=== PATIENT | male | born 1980 | race Caucasian/White ===

== ENCOUNTER 2020-08-25 19:09 | Emergency (ER) | payer OTHER, SELFPAY ==
[2020-08-25 19:12] VITALS: BP 130/72; PULSE 77; RESP 20; TEMP 37.2; O2SAT 96
[2020-08-25 19:42] LABS: Bilirubin Urine UA NEGATIVE (NEGATIVE); Color Urine UA YELLOW; Glucose Urine UA NEGATIVE (Negative); Ketones Urine UA NEGATIVE (NEGATIVE); Leukocyte Esterase Urine UA 2+ (NEGATIVE); Nitrite Urine UA NEGATIVE (Negative); Occult Blood Urine UA TRACE-INTACT (Negative); Protein Urine UA NEGATIVE (Negative); Urobilinogen Urine UA 0.2 E.U./dL (0.2); pH Urine UA 6.5 (4.5-8.0)
[2020-08-25 20:01] LABS: Appearance Urine UA Slightly Cloudy; RBC Urine 0-1/HPF (0-5/HPF); Squamous Epithelial Cell Urine 0-1 /HPF (0-5/HPF); WBC Urine 10-30/HPF (0-5/HPF)
[2020-08-25 20:02] LABS: Amorphous Sediment Urine 1+; Bacteria Urine Moderate (10-30); Culture Indicated Urine Specimen Cultured
--- NOTE | 2020-08-25 21:52 | ED_ITS ---
HPI - Male Genitourinary General Chief complaint: Urogenital-Male Stated complaint: PAIN URINATING FEVER Time Seen by Provider: 08/25/20 20:41 Source: patient Mode of arrival: Ambulatory Limitations: no limitations History of Present Illness HPI Narrative: 40-year-old male comes emergency department complaint of dysuria as well as penile discharge. Patient states he has had a bladder infection in the past. Patient has felt fevers, he has had muscle aches and chills. He denies any other abdominal pain. He has had some bilateral back pain but states he has some chronic back pain. He denies any nausea or vomiting. He denies any issues with bowel movements. He states he has had some frequency, dysuria but no hesitancy or sense of urgency. He denies any other medical issues. He has had UTI in the past which he was treated with antibiotics but is unaware if he recived IM antibiotics or how it was treated or final diagnosis. Patient denies any testicular pain. He states he has a single partner in a monogamous relationship. Related Data Previous Rx's Medication Instructions Recorded doxycycline hyclate 100 mg PO BID #28 tab 08/25/20 Allergies Allergy/AdvReac Type Severity Reaction Status Date / Time No Known Drug Allergies Allergy Verified 08/25/20 19:15 Review of Systems Review of Systems ROS Unobtainable: All systems reviewed & are unremarkable except as noted in HPI and below Exam Narrative Exam Narrative: GENERAL: Alert and oriented x three, thin, well-appearing male in mild distress. HEENT: Head normocephalic, atraumatic, EOMI, pupils reactive, face symmetric, moist mucous membranes NECK: Supple, full range of motion CARDIOVASCULAR: Regular rate and rhythm without murmurs, rubs or gallops. RESPIRATORY: Breath sounds equal bilaterally, no wheezes rales or rhonchi. ABDOMEN: Soft, nontender. Normoactive bowel sounds all 4 quadrants. No guarding or rebound, rigidity, no mass : No CVA tenderness. Male: normal external examination except for a small amount of clearish discharge, no lesions are appreciated, no penile discharge or lesions, testicles non-tender, cremasteric reflex intact, no inguinal hernias noted. EXTREMITIES: Normal range of motion, no clubbing or edema. Neurovascularly intact NEUROLOGICAL: Cranial nerves II through XII grossly intact. Moving all extremities. Normal gait. SKIN: Warm, dry, no petechiae, no rashes or lesions. Initial Vital Signs Initial Vital Signs: Vital Signs Temperature 99.0 F 08/25/20 19:12 Pulse Rate 77 08/25/20 19:12 Respiratory Rate 20 08/25/20 19:12 Blood Pressure 130/72 08/25/20 19:12 Pulse Oximetry 96 08/25/20 19:12 Course Orders Ordered: ED Orders 08/25/20 19:30 Chlamydia Gonorrhea PCR -URINE Stat Urinalysis and Microscopic Stat Urine Culture Stat 08/25/20 23:07 Chlamydia/Gonoc/Myco Genital Stat Discontinued Medications Ceftriaxone Sodium (Ceftriaxone 1,000 Mg Vial) 500 mg IM NOW ONE Stop: 08/25/20 23:10 Last Admin: 08/25/20 23:19 Dose: 500 mg Documented by: ALESSANDRO Doxycycline Hyclate (Doxycycline Hyclate 100 Mg Tablet) 100 mg PO NOW ONE Stop: 08/25/20 23:10 Last Admin: 08/25/20 23:20 Dose: 100 mg Documented by: ALESSANDRO Lidocaine HCl (Lidocaine 1% 20 Ml) 2.1 ml INJ NOW ONE Stop: 08/25/20 23:10 Vital Signs Vital signs: Vital Signs - 8 hr 08/25/20 19:12 08/25/20 21:54 08/25/20 23:14 Temperature 99.0 F Pulse Rate 77 71 Respiratory Rate 20 20 Blood Pressure 130/72 120/72 Pulse Oximetry 96 96 08/25/20 23:29 Temperature Pulse Rate 78 Respiratory Rate 16 Blood Pressure 142/74 H Pulse Oximetry 98 MDM - Male Genitourinary Lab Data Attestation: I reviewed the patient's lab results. Labs: Lab Results 08/25/20 08/25/20 Range/Units 19:30 19:30 Urine Color Yellow Urine Appearance Slightly cloudy Urine pH 6.5 (4.5-8.0) Ur Specific [place] 1.010 (1.000-1.035) Urine Protein Negative (Negative) Urine Glucose (UA) Negative (Negative) g/dL Urine Ketones Negative (NEGATIVE) Urine Occult Blood Trace-intact (Negative) Urine Nitrate Negative (Negative) Urine Bilirubin Negative (NEGATIVE) Urine Urobilinogen 0.2 (0.2) E.U./dL Ur Leukocyte Esterase 2+ H (NEGATIVE) Urine RBC 0-1/hpf (0-5/HPF) Urine WBC 10-30/hpf H (0-5/HPF) Ur Squamous Epith Cells 0-1 /hpf (0-5/HPF) Amorphous Sediment 1+ Urine Bacteria Moderate (10-30) H (None) Ur Culture Indicated? Specimen cultured Ur Chlamydia DNA (PCR) Not detected N gonorrhoeae DNA (PCR) Not detected MDM Narrative Medical decision making narrative: Patient's urinalysis has leukocytes. He has discharge which is atypical for a UTI. Urine GC is negative but was not his 1st urine of the day so a genital swab was sent. Patient was treated with Rocephin as well as doxycycline and prescription was given for doxycycline. Patient is aware that testing is still pending. Discharge Plan Departure Patient Disposition: Home Clinical Impression: Dysuria Instructions: DI for Dysuria -- Adult Activity Restrictions/Additional Instructions: You do have lab/swab is currently pending today. Take antibiotics until completely gone. Return to the ER for persistent fevers, worsening back, flank pain, abdominal pain, persistent vomiting, inability urinate or new or concerning symptoms. Prescriptions: New doxycycline hyclate 100 mg tablet 100 mg PO BID Qty: 28 RF: 0
[2020-08-25 21:54] VITALS: BP 120/72; PULSE 71; O2SAT 96
[2020-08-25 22:15] LABS: Urine N gonorrhoeae NOT DETECTED
[2020-08-25 22:17] LABS: Urine Chlamydia NOT DETECTED
[2020-08-25 23:14] VITALS: RESP 20
[2020-08-25] MEDS: cefTRIAXone 1,000 MG VIAL 500 MG IM (23:19)
[2020-08-25] MEDS: DOXYCYCLINE HYCLATE 100 MG TABLET PO (23:20)
[2020-08-25] MEDS: LIDOCAINE 1% (PF) 2 ML (23:20)
[2020-08-25 23:29] VITALS: BP 142/74; PULSE 78; RESP 16; O2SAT 98
[2020-08-30 14:26] LABS: Chlamydia trachomatis Negative (Negative); Mycoplasma genitalium Negative (Negative); Neisseria gonorrhoeae Negative (Negative)
== END 2020-08-25 23:31 | disposition home or self-care (01) ==
PROVIDERS: Emergency Provider Emergency Medicine
DX: R30.0 Dysuria (principal); R50.9 Fever, unspecified
CPT/HCPCS: 81001; 87077; 87086; 87186; 87491; 87563; 87591; 96372; 99281; 99283; J0696

== ENCOUNTER 2024-05-31 07:13 | Day surgery (SDC) | payer OTHER, SELFPAY ==
--- NOTE | 2024-05-31 | PATH_ITS ---
[facility] Accession Number: [id number] No. of containers..01 Tissue . 01 Material submitted: . colon - ASCENDING COLON POLYP . 01 Diagnosis: ASCENDING COLON POLYP: Sessile serrated adenoma. [facility] 06/02/2024 1503 Local . 01 Electronically signed: . Sridhar Best MD, Pathologist NPI- [id number] . 01 Gross description: . Received in formalin with two patient identifiers and ascending colon polyp, consists of two christie-white flattened irregular soft tissues measuring 0.6 and 0.8 cm in greatest dimension, which are entirely submitted in cassette A1. ([id number]) /MRV 06/02/2024 1503 Local . 01 Pathologist provided ICD-10: D12.2 . 01 CPT . 749940 Specimen Comment: A courtesy copy of this report has been sent to [phone] Performed at: [address] [facility] [address], [place], [place] [id number] MD Sridhar Best MD Phone: [phone]
[2024-05-31 07:30] VITALS: BP 128/74; PULSE 55; RESP 16; TEMP 36.3; O2SAT 99
--- NOTE | 2024-05-31 08:02 | PM.HP.1 ---
History of Present Illness History of Present Illness Date Patient Seen: 05/31/24 Time Patient Seen: 08:02 Chief complaint: Dx Colonoscopy w/poss bx Narrative: 44-year-old male who reports an episode of rectal bleeding 6 months ago. I reviewed the note by Morgan Estrada. No changes. [facility] Social History Smoking Status: Never smoker alcohol intake: current Meds Home Medications and Allergies Allergies Allergy/AdvReac Type Severity Reaction Status Date / Time No Known Drug Allergies Allergy Verified 05/31/24 07:16 Review of Systems Review of Systems ROS: Yes All systems reviewed with the patient and are negative except as otherwise documented Exam Vital Signs (past 8 hours): - 05/31/24 07:30 Temperature 97.3 F L Pulse Rate 55 L Respiratory Rate 16 Blood Pressure 128/74 Pulse Oximetry 99 Oxygen Delivery Method Room Air Oxygen Delivery Method Room Air Const General: cooperative HENMT Head: normal to inspection Eyes General: appearance normal, both eyes and all related structures Neck Neck: normal visual inspection Chest Chest: normal inspection of the chest Resp Effort & Inspection: normal respiratory effort Cardio Rate: regular rate GI Inspection: normal to inspection Skin General: no rashes or lesions noted Neuro General: patient alert and patient awake Extrem General: normal to inspection and no pedal edema Psych Appearance: grossly normal Assessment & Plan Assessment & Plan narrative: 44-year-old male with an episode of rectal bleeding. Colonoscopy is pursued today. Time-Based Coding :: [TOTAL MINUTES] spent with patient and on the chart (including review of chart, obtaining history, exam, reviewing outside data, placing orders, documenting exam and treatment plan, and counseling patient) on [DATE].
--- NOTE | 2024-05-31 08:03 | PM.PREOP ---
Pre-operative Note Interval Note History & Physical reviewed/Exam performed by Physician: Yes Changes to H&P: No ASA Class (for procedural sedation): I
--- NOTE | 2024-05-31 09:06 | PM.OP.COLON ---
Operative Date/Time/Diagnoses Date of procedure: 05/31/24 Time of procedure: 09:06 Pre-op diagnosis: Remote rectal bleeding Post-op diagnosis: same Procedure & Clinicians Study performed: Colonoscopy with hot snare polypectomy Same procedure as scheduled: Yes Indications: Remote rectal bleeding Surgeon: Juan Tello Procedure Notes SCOAP/Timeout: Done Procedure in detail: After the risks and benefits were explained, written and verbal informed consent was obtained. The patient was brought into the procedure room and placed into the left lateral decubitus position. Please see anesthesia note for sedation details. Digital rectal examination was accomplished. The scope was introduced into the patient and advanced under direct visualization to the cecum as identified by the appendiceal orifice and ileocecal valve. The scope was slowly withdrawn to carefully examine the mucosa for any defects or lesions. Comprehensive imaging was accomplished throughout the rectum including the dentate line. The colon was decompressed, the scope was then removed from the patient who tolerated the procedure well. Adult colonoscope Bowel prep adequate Scope withdrawal time: 16 minutes Sedation minutes: 24 Complications: none Impression: There was some scattered erythema in the mid rectum circumferentially that suggested prep artifact. No bleeding lesions no ulceration. No sign of inflammation throughout the rectum and colon. Minimal internal hemorrhoids were appreciated grade 1 at most. No stigmata of recent bleeding. The terminal ileum was interrogated and appeared visually normal. In the ascending colon there was an approximately 7 mm sessile polyp that was initially attempted to be removed with hot snare. The snare came through cold. There were 2 foci of what I could not distinguish residual polyp versus artifact from the snare at the periphery of the polypectomy site. These were cauterized with the tip of the snare. Even though the snare came through cold, there was no sustained bleeding identified. Endoscopic diagnosis 1. Colon polyp 2. Otherwise visually unremarkable colonoscopy. Post-procedure Plan for aftercare: 1. Await histology. 2. Surveillance colonoscopy timing will be contingent on pathology results. Disposition: PACU
[2024-05-31 09:10] VITALS: BP 97/62; PULSE 54; RESP 12; TEMP 36.2; O2SAT 99
[2024-05-31 09:15] VITALS: BP 111/64; PULSE 66; RESP 11; O2SAT 99
[2024-05-31 09:19] VITALS: BP 116/78; PULSE 59; RESP 14; TEMP 36.6; O2SAT 100
== END 2024-05-31 09:34 | disposition home or self-care (01) ==
PROVIDERS: Referring Provider Internal Medicine Gastroenterology; Visit Provider Internal Medicine Gastroenterology
PROC: 0DJD8ZZ Inspection of Lower Intestinal Tract, Via Natural or Artificial Opening Endoscopic (ICD-10-PCS; CPT 45378; principal; 2024-05-31 08:30)
DX: K62.5 Hemorrhage of anus and rectum (principal); D12.2 Benign neoplasm of ascending colon
CPT/HCPCS: 45385; 36415; J2704

== ENCOUNTER → 2025-05-29 13:59 | Outpatient (CLI) | payer OTHER, SELFPAY ==
--- NOTE | 2025-05-29 14:00 | DI.MRI.S_ITS ---
PROCEDURE: MR HIP RT WO CON INDICATIONS: low back pain; right hip pain TECHNIQUE: Noncontrast coronal T1 spin echo and STIR through the bony pelvis. Coronal and axial T2 fast spin echo with fat saturation, sagittal T1 spin echo, and oblique axial T2 fast spin echo with fat saturation through the hip. COMPARISON: None. FINDINGS: Image quality: Excellent. Bones and joints: Prominence of superior anterior right femoral head neck junction with subcortical cystic area is noted which can be seen associated with CAM type femoral acetabular impingement. No marrow edema. No intraosseous lesions or fractures. No avascular necrosis of the femoral heads. The visualized lower lumbar spine appears normally aligned. Tendons and ligaments: Mild right gluteus medius tendinosis at its insertion on greater trochanter is seen. Distal right gluteus minimus tendon is intact. The nearby proximal iliotibial band also appears intact. The iliopsoas tendon appears intact, without adjacent bursal fluid collections or evidence for impingement syndrome. Mild tendinosis involving right hamstring tendon origins at ischial tuberosity is seen. Labrum and cartilage: Cartilage surface of the femoral head appears of normal thickness. There is subtle fraying of superior anterior acetabular labrum with T2 hyperintense signal and adjacent tiny 6 x 3 mm cystic area . Soft tissues: Visualized muscles demonstrate normal bulk and internal signal. Quadratus femoris muscle demonstrates no internal edema to suggest ischiofemoral impingement. The proximal sciatic neurovascular bundle appears normal adjacent to the hamstring tendons. No free pelvic fluid. Bladder wall thickness is normal. Genitourinary structures and bowel loops appear normal where visualized. IMPRESSION: 1. No marrow edema. No fracture or dislocation. Prominence of superior anterior right femoral head neck junction with subcortical cystic area which can be seen associated with CAM type femoral acetabular impingement. 2. Mild right gluteus medius tendinosis. Mild tendinosis involving right hamstring tendon origins at ischial tuberosity. 3. Finding is suggestive of superior anterior right acetabular labral tear with adjacent 6 x 3 mm perilabral cyst. Dictated by: Enzo Cunningham M.D. on 05/30/2025 at 9:05 Approved by: Enzo Cunningham M.D. on 05/30/2025 at 9:08
--- NOTE | 2025-05-29 14:01 | DI.MRI.S_ITS ---
PROCEDURE: MR LUMBAR SPINE WO CON INDICATIONS: low back pain; right hip pain TECHNIQUE: Noncontrast sagittal T1 spin echo and T2 fast echo, sagittal STIR, and axial T2 fast spin echo through the lumbar spine. COMPARISON: None. FINDINGS: Image quality: Excellent. Alignment and Curvature: There is normal bony alignment. Bone Marrow: Marrow is of normal overall signal. No acute vertebral body compression fractures. Spinal Cord: Conus medullaris terminates at the L1 level. Visualized cord demonstrates normal signal and size. Paraspinous Soft Tissues: No paravertebral masses. Discs: No disc protrusion or extrusion. No significant spinal canal stenosis or neural foraminal narrowing. Mild bilateral facet hypertrophy at the L3-4, L4-5, and L5-S1 levels. IMPRESSION: Mild facet hypertrophy. No significant spinal canal stenosis or neural foraminal narrowing. Approved by: Mir Bass M.D. on 05/30/2025 at 15:03
== END ==
LOC: MRI 13:59
DX: M47.816 Spondylosis without myelopathy or radiculopathy, lumbar region (principal); M47.817 Spondylosis without myelopathy or radiculopathy, lumbosacral region; M54.50 Low back pain, unspecified; M67.951 Unspecified disorder of synovium and tendon, right thigh; M25.551 Pain in right hip
CPT/HCPCS: 72148; 73721